=== PATIENT | female | born 1960 | race Caucasian/White ===

== ENCOUNTER 2017-04-29 08:20 | Outpatient (CLI) | payer BC ==
--- NOTE | 2017-04-29 11:07 | MRI ---
MRI BRAIN WITHOUT CONTRAST: Date: 04/29/17 HISTORY: Blurry vision. COMPARISON: None. FINDINGS: On the diffusion-weighted image sequence, there are no abnormal areas of diffusion restriction to fishman ggest infarction. This is confirmed on the ADC map. No abnormal hemorrhage. There is very mild deep white matter and subcortical white matter microangiopathic changes. No hemorrhage. No midline shift or mass effect. Ventricular size and extra-axial CSF spaces are normal. Orbits are unremarkable. Gee w-voids are patent. The marrow signal of the clivus is normal. The cerebellar tonsils terminate abov e the level of the foramen magnum. The corpus callosum is normal. IMPRESSION: Low grade microangiopathic changes. No acute hemorrhage or infarct. POS: [facility]
--- NOTE | 2017-04-29 11:36 | CT ---
POST CONTRAST SOFT TISSUE NECK CT: HISTORY: Dizziness and vision changes. COMPARISON: None. TECHNIQUE: A CT angiogram of the neck is performed in the axial plane. Three-dimensional reformatted images ar e submitted for interpretation. FINDINGS: Adequate aeration of the visualized paranasal sinuses and mastoid air cells, with the exception of t he right maxillary sinus, which has minimal mucosal thickening. The visualized brain parenchyma and orbits are unremarkable. The aerodigestive tract is patent. No mucosal abnormality. Limited evaluation of the oral cavity d ue to dental amalgam artifact. The midline fatty raphe of the tongue appears to be preserved. The epiglottis has a normal caliber. The pre-epiglottic fat is preserved. There is no prevertebral sof t tissue swelling. The upper mediastinum and lung apices are unremarkable. Cervical spine vertebral body height is maintained. No fracture. CT ANGIOGRAM: The aortic arch has an overall normal caliber. RIGHT CAROTID: The right carotid artery origin has appropriate enhancement and luminal diameter. T he innominate artery, common carotid artery, carotid bifurcation, and internal carotid artery have a ppropriate enhancement and luminal diameter. LEFT CAROTID: The left carotid artery origin has appropriate enhancement and luminal diameter. The left common carotid artery, carotid bifurcation, and internal carotid artery have appropriate enhan cement and luminal diameter. Co-dominant vertebral arteries are noted. No significant stenosis along the cervical course of eith er vertebral artery. Bilateral subclavian arteries are unremarkable. IMPRESSION: Unremarkable CT angiogram of the neck. No significant stenosis. POS: [facility]
[2017-04-29] MEDS ORDERED: Iopamidol 370 76% 100 ML VIAL ONE (15:57)
== END 2017-04-29 08:21 | disposition home or self-care (01) ==
LOC: TBSIIMAG 08:20
PROVIDERS: ATTEND Psychiatry & Neurology Neurology
DX: H53.9 Unspecified visual disturbance (principal); R42 Dizziness and giddiness
CPT/HCPCS: 70498; 70551

== ENCOUNTER 2023-07-01 13:20 | Outpatient (CLI) | payer OTHER | END 2023-07-01 13:21 | disposition home or self-care (01) | LOC: SCSMRI 13:20 | PROVIDERS: ATTEND Family Medicine | DX: M47.22 Other spondylosis with radiculopathy, cervical region (principal); M54.6 Pain in thoracic spine; M50.123 Cervical disc disorder at C6-C7 level with radiculopathy; M47.813 Spondylosis without myelopathy or radiculopathy, cervicothoracic region | CPT/HCPCS: 72141; 72146 ==